=== PATIENT | female | born 1950 | race Caucasian/White ===

== ENCOUNTER → 2017-03-02 | Outpatient (CLI) | payer OTHER ==
[~2017-03-02] MED LIST: ADVAIR 250-501 EACH IH; ALBUTEROL MININEB; ALBUTEROL MININEB NEB; ALBUTEROL17 GM INH; ALPRAZOLAM PO; AMOXICILLIN PO; ASPIRIN ENTERI325 M1 PO; ASPIRIN81 M1 PO; ASTELIN137 MCG; ATENOLOL PO; ATORVASTATIN CA80 MG PO; AZELASTINE205.5 MCG/ INH; BACTRIM DS TABL1 TA1 PO; BENZONATATE PO; CARTIA XT240 MG PO; CLARITIN10 MG PO; CLOPIDOGREL75 MG PO; DETROL PO; DYAZIDE 37.5/251 CAP PO; FLONASE 0.05% N16 GM; IMDUR-ER60 MG PO; ISORDIL PO; KEFLEX PO; LIPITOR80 MG PO; NEURONTIN300 MG PO; NITROGLYGERIN0.4 MG SL; OMEPRAZOLE40 M1 PO; PERCOCET 5-3251 TAB PO; PHENERGAN25 MG PO; PLAVIX PO; PREDNISONE10 MG/DOSE PO; PRILOSEC PO; SPIRIVA18 MCG INH; TRIAMTERENE-HCT1 TA8 PO; ULTRAM PO; [UNRECOGNIZED DRUG - OTHER]
--- NOTE | ~2017-03-02 | US37 ---
[facility] A Service of [facility] / [facility] RADIOLOGY TEXT RESULTS PATIENT: ISIAH CABRERA LOCATION: CNIV : 52 UNIT #: [id number] AGE: [address]: BERNADETTE HAMEED APRN SEX: F ORDER DR: [id number] [facility] [address] [place], [place] [address] [id number] O MR#: [id number] Acc #: [id number] NAME: ISIAH CABRERA : 1950 SEX: F STUDY DATE/TIME: 03/02/2017 9:40 UNIT: CNIV ROOM: STUDY DESCRIPTION: US Carotid W/Doppler Bilateral Attending Physician: Bernadette Hameed Aprn Referring Physician: Bernadette Hameed Aprn Ordering Physician: Bernadette Hameed Aprn Primary Care Physician: Uli Patel M.D. MEDICAL IMAGING REPORT This report is preliminary unless electronic signature is present EXAM Bilateral carotid Doppler HISTORY Carotid stenosis FINDINGS The right common carotid, internal carotid and external carotid arteries are patent with mild plaque at the carotid bulb and proximal internal carotid artery. Velocity of the common carotid artery is 98 cm/sec. Peak systolic velocity of the right proximal internal carotid artery is 104 cm/sec with an end diastolic velocity of 24 cm/sec for an ICA/CCA ratio of 1.06. External carotid artery had a velocity of 112 cm/sec. The vertebral artery is visualized with antegrade flow. Left common carotid, internal carotid and external carotid arteries are patent with mild plaque within the carotid bulb and internal carotid artery. Velocity of the common carotid artery is 95 cm/sec. Peak systolic velocity of the left proximal internal carotid artery is 170 cm/sec with an end diastolic velocity of 65 cm/sec for an ICA/CCA ratio of 1.8. External carotid artery had a velocity of 123 cm/sec. The vertebral artery is visualized with antegrade flow. IMPRESSION 1. Less than 50% stenosis of the right internal carotid artery and 50-69% stenosis of the left internal carotid artery. 2. No stenosis of the external carotid arteries. 3. Antegrade flow of the vertebral arteries. [facility] A Service of [facility] [place] RADIOLOGY TEXT RESULTS PATIENT: ISIAH CABRERA LOCATION: CNIV : 52 UNIT #: [id number] AGE: [address]: BERNADETTE HAMEED, TITA SEX: F ORDER DR: Dictated by... Caitie Dixon M.D. THIS IS AN ELECTRONICALLY VERIFIED REPORT Caitie Dixon M.D. at 03/10/2017 11:49 AM DENIZ/lai TD: 03/02/2017 14:39 JOB #: [id number] MEDICAL IMAGING REPORT Page 1 of 1 COPY
== END | disposition home or self-care (01) ==
LOC: CNIV 08:59
DX: I65.23 Occlusion and stenosis of bilateral carotid arteries (principal)
CPT/HCPCS: 93880